=== PATIENT | female | born 1980 | race Caucasian/White ===

== ENCOUNTER → 2025-02-27 14:18 | Outpatient (REF) | payer OTHER, SELFPAY | LOC: RAD 14:18 | PROVIDERS: ATTENDING PHYSICIAN Obstetrics & Gynecology Gynecologic Oncology; FAMILY PHYSICIAN Internal Medicine | DX: D06.9 Carcinoma in situ of cervix, unspecified (principal); R87.810 Cervical high risk human papillomavirus (HPV) DNA test positive; R87.619 Unspecified abnormal cytological findings in specimens from cervix uteri | CPT/HCPCS: 76830; 76856 ==

== ENCOUNTER 2025-03-07 06:21 | Day surgery (SDC) | payer OTHER, SELFPAY ==
--- NOTE | 2025-03-06 16:26 | W.CON.GYNONC ---
Chief Complaint
-
CHANG 3
History of Present Illness
44�year�old 4 para 4�0�0�4 [place] [employer] referred to me by Dr. Lopez in gynecology, for cervical intraepithelial
neoplasia
LEEP procedure February 11, 2024 shows CHANG�3 involving 2 separate LEEP specimens with extension into endocervical glands. One of
the specimens show presence of dysplastic epithelium and ectocervical surgical margin.
Pap smear May 17, 2024 atypical squamous cells cannot exclude high�grade squamous intraepithelial lesion, HPV positive
Colposcopy performed July 07, 2024, ECC with benign endocervix, 2 cervical biopsies at 6 and 12:00 shows chronic cervicitis
but no dysplasia
Repeat Pap smear December 28, 2024 shows atypical squamous cells cannot exclude high�grade squamous intraepithelial lesion as well
as atypical glandular cells of endocervical origin. HPV high risk detected
Repeat colposcopy performed January 13, 2025 shows superficial fragments of atypical squamous epithelium favoring high�grade
dysplasia and ECC, cervical biopsy indicating CHANG�1 and cervical biopsy at 6:00 with no diagnostic abnormality.
Past medical history none
Medications norethindrone Jencycla oral contraceptive pills
Past surgical history LEEP procedure
Family history significant for father with colon cancer otherwise negative
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
Screening studies: Patient is up�to�date with mammography, never has had a colonoscopy
Gynecologic history: Menarche at age 10, menses are regular, she is still menstruating, has had prior history of abnormal Pap
smears in the past but did not require any treatment. She is sexually active, and denies any postcoital bleeding, she had 4 vaginal
deliveries with no significant complications
Medical History
Allergies
Allergies reflect when allergies were last updated in [employer].
No Known Allergies Allergy (Verified 03/06/25 11:44)
Physical Exam
Physical Exam
Pelvic�Examination: External�normal�labia,�urethra,�anus.� Vagina:�Normal�mucosa. Cervix:�normal�appearance,�no�discharge.� Uterus:�normal�size.� Adnexa:�No�pelvic�mass.� RVE:�no�masses�or�nodularity
General:�Well�developed,�well�nourished�patient.�In�no�acute�distress. Neck:�No�thyromegaly.�No�cervical�lymphadenopathy. Lungs:�Clear�to�auscultation.�Good�air�movement�bilaterally. Cardiac:�Regular�rate.�Regular�rhythm.�No�murmurs�appreciated.
Right�Breast:�No�masses�or�dimpling.�No�nipple�discharge. Left�Breast:�No�masses�or�dimpling.�No�nipple�discharge. Abdomen:�Abdomen�is�soft.�Non�tender�to�palpation.�Non�distended. Extremities:�No�edema.
Hematologic/Lymphatic:�No�palpable�lymphadenopathy. Musculoskeletal:�Normal�range�of�motion.�Strength�and�Tone�are�normal. Skin:Non�jaundiced.�No�petechia.�No�purpura. Neurologic:�Speech�is�fluent.�Normal�gait�and�station.�Cranial�nerves�intact.
Results
-
Diagnostic Imaging Report
Signed
Order #:[id number]
Exams: US Pelvis W Transvag Combined
Examinations: Transabdominal and transvaginal pelvic ultrasound on 02/27/2025 3:19 PM
Clinical Information: Abnormal Pap smear
Comparison: None.
FINDINGS:
The following represents a composite report of the transabdominal and transvaginal sonographic
examination of the pelvis.
The uterus measures 10.2 x 4.9 x 6.2 cm. The uterus has a homogeneous echotexture with small
intramural fibroid in the left anterior upper uterine body measuring up to 0.7 x 0.5 x 0.6 cm.
Endometrial stripe is within normal limits for patient's age and measures 5 mm maximal thickness.
Both ovaries are seen transabdominally only.
The right ovary measures 2.1 x 1.6 x 1.9 cm and is within normal limits.
The left ovary measures 2.0 x 1.6 x 1.4 cm and is within normal limits.
Urinary bladder shows no gross abnormality. There is no free fluid or suspicious adnexal mass.

IMPRESSION:

1. Small uterine fibroid. Otherwise unremarkable pelvic ultrasound as described.
Electronically signed by Beka Hyatt, 02/27/2025 5:34 PM
Dictated By: Beka Hyatt MD
Dictated Date & Time: 02/27/251732
COMPREHENSIVE METABOLIC PANEL�-FinalOrdered by:�JUSTO AVELAR
Glucose 89 mg/dL 65-99 Z99
Fasting reference interval
BUN 11 mg/dL 7-25 Z99
Creat 0.84 mg/dL 0.50-0.99 Z99
EGFR 87 mL/min/1.73m2 > OR = 60 Z99
BUN Creat Ratio SEE NOTE: (calc) 6-22 Z99
Not Reported: BUN and Creatinine are within
reference range.
Sodium 140 mmol/L 135-146 Z99
Potassium 4.4 mmol/L 3.5-5.3 Z99
Chloride 105 mmol/L 98-110 Z99
CO2 28 mmol/L 20-32 Z99
Calcium 9.0 mg/dL 8.6-10.2 Z99
Total Protein 7.2 g/dL 6.1-8.1 Z99
Albumin 4.4 g/dL 3.6-5.1 Z99
Globulin 2.8 g/dL (calc) 1.9-3.7 Z99
A/G 1.6 (calc) 1.0-2.5 Z99
Bilirubin, Total 0.6 mg/dL 0.2-1.2 Z99
Alk Phos 87 U/L 31-125 Z99
AST 12 U/L 10-35 Z99
ALT 16 U/L 6-29 Z99
Test Performed At:
Z99
[facility]
[address] [place] [address], [id number]
DR. Francisco J Johnson
Performing Location:�Z99�=�[address]
PARTIAL THROMBOPLASTIN TIME, ACTIVATED�-FinalOrdered by:�JUSTO AVELAR
PARTIAL THROMBOPLASTIN TIME, ACTIVATED 28 sec 23-32 Z99
This test has not been validated for monitoring
unfractionated heparin therapy. For testing that
is validated for this type of therapy, please refer
to the Heparin Anti-Xa assay (test code 37265).
For additional information, please refer to
http://education.[employer]/faq/MKJ794
(This link is being provided for
informational/educational purposes only.)
Test Performed At:
Z99
[facility]
[address] [place] [address], [phone]
DR. Francisco J Johnson
Performing Location:�Z99�=�[facility]
CBC (INCLUDES DIFF/PLT)�-FinalOrdered by:�JUSTO AVELAR
WBC 7.8 Thousand/uL 3.8-10.8 Z99
RBC 4.90 Million/uL 3.80-5.10 Z99
Hgb 16.0High g/dL 11.7-15.5 Z99
HCT 48.5High % 35.0-45.0 Z99
MCV 99.0 fL 80.0-100.0 Z99
MCH 32.7 pg 27.0-33.0 Z99
MCHC 33.0 g/dL 32.0-36.0 Z99
For adults, a slight decrease in the calculated MCHC
value (in the range of 30 to 32 g/dL) is most likely
not clinically significant; however, it should be
interpreted with caution in correlation with other
red cell parameters and the patient's clinical
condition.
RDW 12.7 % 11.0-15.0 Z99
Plat 275 Thousand/uL 140-400 Z99
MPV 10.5 fL 7.5-12.5 Z99
ANC 4828 cells/uL 5248-9689 Z99
Lymph# 2215 cells/uL 850-3900 Z99
MONO# 554 cells/uL 200-950 Z99
EOS# 140 cells/uL 15-500 Z99
BASO# 62 cells/uL 0-200 Z99
Neut% 61.9 % Z99
Lymph% 28.4 % Z99
MONO% 7.1 % Z99
EOS% 1.8 % Z99
BASO% 0.8 % Z99
Test Performed At:
Z99
[facility]
[address] [place] [address], [phone]
DR. Francisco J Johnson
Performing Location:�Z99�=�[facility],�[address] [place] [id number]
PROTHROMBIN TIME-INR�-FinalOrdered by:�JUSTO AVELAR
INR 1.0 Z99
Reference Range 0.9-1.1
Moderate-intensity Warfarin Therapy 2.0-3.0
Higher-intensity Warfarin Therapy 3.0-4.0
ProTime 10.6 sec 9.0-11.5 Z99
For additional information, please refer to
http://education.[employer]/faq/XLF562
(This link is being provided for informational/
educational purposes only.)
Test Performed At:
Z99
[facility]
[address] [place] [address],
DR. Francisco J Johnson
Performing Location:�Z99�=�[facility],�[address] [place], [place] [id number]
FSH�-FinalOrdered by:�JUSTO AVELAR
FSH 2.7 mIU/mL Z99
Reference Range
Follicular Phase 2.5-10.2
Mid-cycle Peak 3.1-17.7
Luteal Phase 1.5- 9.1
Postmenopausal 23.0-116.3
Test Performed At:
Z99
[facility]
[address] [place] [address],
DR. Francisco J Johnson
Performing Location:�Z99�=�[place] [id number]
HCG, TOTAL, QN�-FinalOrdered by:�JUSTO AVELAR
B-Hcg <5 mIU/mL Z99
Reference Range
Non or premenopausal <5
Postmenopausal <10
Values from different assay methods may vary.
The use of this assay to monitor or to diagnose
patients with cancer or any condition unrelated
to has not been cleared or approved by
the FDA or the tool sharpener of the assay.
Test Performed At:
Z99
[facility]
[address] [place] [address],
DR. Francisco J Johnson
Performing Location:�Z99�=�[place] [id number]
TSH W/REFLEX TO FT4�-FinalOrdered by:�JUSTO AVELAR
TSH 6.34High mIU/L Z99
Reference Range
> or = 20 Years 0.40-4.50
Ranges
First trimester 0.26-2.66
Second trimester 0.55-2.73
Third trimester 0.43-2.91
Test Performed At:
Z99
[facility]
[address] [place], [address]
DR. Francisco J Johnson
Performing Location:�Z99�=�[facility],�[id number]
T4, FREE�-FinalOrdered by:�JUSTO AVELAR
T4, FREE 1.0 ng/dL 0.8-1.8 Z99
Impression / Plan
-
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
procedure a year ago for CHANG�3 with positive margins, now has persistent high risk HPV infection and evidence of CHANG�1 and CHANG�3
on recent colposcopy.
I spoke to the patient at length and described the terminology used for description of various cervix intraepithelial precancerous
lesions and cervical cancer, we discussed cause as well as treatments. The cervix grossly appears to be within normal limits and I
do not see any gross lesions in the vagina. My recommendation is for a cold knife cone biopsy of the cervix to be done as a
outpatient within the next couple of weeks. I explained the procedure to the patient in detail she understands what it entails risks
including infection bleeding injury to adjacent organs DVT pulmonary embolism and cardiovascular complications were discussed
and reviewed. Labs including CMP CBC test hCG FSH and TSH will be obtained I also recommended a baseline
ultrasound of pelvis for visualization of the uterus cervical canal as well as ovaries.
Patient will be notified about the procedure as soon as it scheduled.
[2025-03-07 15:22] VITALS: BP 131/88; BMI 29.5
[2025-03-07] MEDS: TYLENOL 1000 MG PO (15:40)
[2025-03-07] MEDS: NORMOSOL-R/PLASMALYTE-A 1000 IV (15:40)
[2025-03-07] MEDS: CELEBREX 200 MG PO (15:40)
[2025-03-07] MEDS: NEURONTIN 300 MG PO (15:40)
[2025-03-07 15:55] LABS: Hematocrit 44.8 % (37.0-47.0); Hemoglobin 15.3 g/dL (12.0-16.0)
[2025-03-07] MEDS: HEPARIN 5000 UNITS SC (19:20)
--- NOTE | 2025-03-07 20:08 | OR.RPT ---
Operative Report
Operative Report
Date of procedure: March 07, 2025
Primary Surgeon: Marcus Wells
Assisting Surgeon: Terrie Romano PA-C
Pre-op Diagnosis: CHANG-3
Post-op Diagnosis: Same
Procedure Performed: Cold knife cone biopsy of cervix with ECC
Anesthesia Type: General, LMA
Specimen / Cultures: Cone biopsy suture at 12:00, ECC
Estimated Blood Loss: 10 cc
Complications: None
Operative Findings: Normal external genitalia including labia minora majora vulval anus urethra, vagina is without any abnormal lesions cervix does not have any gross lesions associated with the
Operative procedure: This patient was taken to the operating room and placed in supine position general anesthesia was administered, she was placed in lithotomy position using yellowfin stirrups and prepped and the perineum and vagina and draped.
Timeout procedure was carried out and she received Ancef for antibiotics. Weighted speculum was placed in the posterior fornix. Anterior lip of the cervix was grasped with single-tooth tenaculum. The cervix was injected with lidocaine admixed
with epinephrine 10 cc in the stroma and 10 cc paracervical block. Stay sutures 0 Vicryl, were placed at 3 and 9:00 and tied to the cervix. #11 blade was used to core out approximately 2 cm deep into the cervical tissue and a cone-shaped specimen
was removed. Cervical canal was dilated, endocervical curetting was obtained and submitted to pathology. I used the rollerball cautery and 50 W to cauterize the cone conization bed. Monsel solution was placed within the cervical bed and 1 g of
Fernando was sprayed within the bed. Sutures were cut there was no bleeding. Patient was awakened and extubated and returned back to recovery room stable awake and extubated condition. Counts of laps instruments and needle was correct x 2. I was
present and scrubbed for entire procedure as dictated above
[2025-03-07 20:15] VITALS: BP 131/88
[2025-03-07 20:30] VITALS: BP 111/66
[2025-03-07 20:45] VITALS: BP 118/71
[2025-03-07 21:00] VITALS: BP 125/78
[2025-03-07 21:15] VITALS: BP 145/86
== END 2025-03-07 21:19 | disposition home or self-care (01) ==
LOC: SDS 06:21
PROVIDERS: ATTENDING PHYSICIAN Obstetrics & Gynecology Gynecologic Oncology
DX: D06.9 Carcinoma in situ of cervix, unspecified (principal); D06.0 Carcinoma in situ of endocervix
CPT/HCPCS: 57520; 85014; 85018; 88305; 88307